=== PATIENT | male | born 1960 | race Two or more races ===

== ENCOUNTER 2023-10-14 07:41 | Outpatient (CLI) | payer OTHER | END 2023-10-14 07:42 | disposition home or self-care (01) | LOC: NUCLEAR 07:41 | DX: R91.8 Other nonspecific abnormal finding of lung field (principal); B20 Human immunodeficiency virus [HIV] disease ==

== ENCOUNTER 2024-03-11 12:58 | Outpatient (CLI) | payer OTHER | END 2024-03-11 13:17 | disposition home or self-care (01) | LOC: TOM 12:58 | PROVIDERS: ATTEND Internal Medicine Pulmonary Disease | DX: R91.1 Solitary pulmonary nodule (principal); B20 Human immunodeficiency virus [HIV] disease ==

== ENCOUNTER 2025-04-20 08:57 | Outpatient (CLI) | payer OTHER ==
[2025-04-20 10:14] LABS: ALT/SGPT 17.0 U/L (12-78); AST/SGOT 16.0 U/L (15-37); BILIRUBIN TOTAL 0.73 mg/dL (0.3-1.2); BUN CREA RATIO 18.0 (7.0-25.0); CREATININE SERUM 1.1 mg/dL (0.70-1.30); GFR 67.39; GLOBULINA 3.6 G/DL (2.4-3.5); GLUCOSE FASTING 106.0 mg/dL (65-100); OSMOLALITY SERUM 282.0 MOSM/KG (275-295)
== END 2025-04-20 15:21 | disposition home or self-care (01) ==
LOC: LAB 08:57
DX: R05.1 Acute cough (principal); R91.8 Other nonspecific abnormal finding of lung field

== ENCOUNTER 2025-04-20 09:35 | Outpatient (CLI) | payer OTHER | END 2025-04-20 09:37 | disposition home or self-care (01) | LOC: TOM 09:35 | DX: R05.1 Acute cough (principal); R91.8 Other nonspecific abnormal finding of lung field ==